=== PATIENT | male | born 1960 | race Caucasian/White ===

== ENCOUNTER 2018-02-02 08:40 | Observation (INO) | payer OTHER ==
[2018-02-02] MEDS ORDERED: Aspirin 81 MG Tab.Chew PO ONE (08:54)
[2018-02-02] MEDS ORDERED: Sodium Chloride 0.9% 2.5 ML Syringe FLUSH PRN (08:54)
[2018-02-02] MEDS ORDERED: Sodium Chloride 0.9% 10 ML Syringe FLUSH PRN (08:54)
[2018-02-02] MEDS: Metoprolol Tartrate 5 MG/5 ML SDV IVPUSH SCH ×2 (09:12→12:07)
--- NOTE | 2018-02-02 09:40 | CR ---
EXAMINATION: Portable chest radiograph. HISTORY: Shortness of breath. FINDINGS: The trachea is midline. The cardiomediastinal silhouette is within normal limits. No pulmonary infilt rates, effusions or pneumothorax. Left costophrenic angle not included. Osseous structures appear unremarkable. IMPRESSION: No acute cardiopulmonary process.
[2018-02-02 09:42] LABS: CHLORIDE,CL 103 mmol/L (98-107); SODIUM,NA 138 mmol/L (136-148)
[2018-02-02] MEDS ORDERED: Nitroglycerin 0.4 MG Tab.SL ONE (09:59)
[2018-02-02] MEDS ORDERED: Nitroglycerin 0.4 MG Tab.SL SL ONE (10:00)
[2018-02-02] MEDS ORDERED: Temazepam 15 MG Cap PO PRN (10:51)
[2018-02-02] MEDS ORDERED: Docusate Sodium 100 MG Cap PO PRN (10:51)
[2018-02-02] MEDS ORDERED: Ondansetron 4 MG/2 ML SDV IVPUSH PRN (10:51)
[2018-02-02] MEDS ORDERED: Morphine 10 MG/ML Syringe IVPUSH PRN (10:51)
[2018-02-02] MEDS ORDERED: Ondansetron 4 MG Tab.DIS PO PRN (10:51)
[2018-02-02] MEDS ORDERED: Ibuprofen 600 MG Tab PO PRN (10:51)
[2018-02-02] MEDS ORDERED: Acetaminophen 325 MG Tab PO PRN (10:51)
[2018-02-02] MEDS ORDERED: Nitroglycerin 0.4 MG Tab.SL SL PRN (10:55)
--- NOTE | 2018-02-02 11:06 | PCM.HP ---
H&P History of Present Illness - General Date of Service: 02/02/18 Admit Problem/Dx: Admission Diagnosis/Problem Admission Diagnosis/Problem Chest pain - History of Present Illness Initial Comments - Free Text/Narative: Adolfo Rodriguez is a 57 y/o male with history of hypertension who presented to the ER complaining of chest pain. He states the pain is located substernally, come and goes for the past 1 month. No radiation to neck or left arm. No diaphoresis. Denies any acid reflux. States that he takes prednisone for joint pain. Does not know the exact reason. He last took prednisone 40 mg yesterday. Denies any recent illnesses. No cough, nausea. No abdominal pain, dysuria, diarrhea. He does endorse a family history of heart disease and diabetes. He does not smoke tobacco but does chew 1 pack/week. In the ER, the patient was given one dose of nitroglycerin. Troponin was negative. No acute changes in EKG. Currently, denying any chest pain. Chest Pain Score (Numeric/FACES): 1 - Related Data Allergies/Adverse Reactions: Allergies Allergy/AdvReac Type Severity Reaction Status Date / Time Sulfa (Sulfonamide Allergy Hives Verified 02/02/18 08:48 Antibiotics) Home Medications: Home Meds Diclofenac Sodium [Voltaren] 50 mg PO DAILY 02/02/18 [History] Losartan [Cozaar] 50 mg PO DAILY 02/02/18 [History] Past Medical History Cardiovascular History: Reports: Hypertension Musculoskeletal History: Reports: Back Pain, Chronic Psychiatric History: Reports: PTSD - Infectious Disease History Infectious Disease History: Reports: Chicken Pox Social & Family History - Tobacco Use Smoking Status *Q: Never Smoker - Caffeine Use Caffeine Use: Reports: Tea - Recreational Drug Use Recreational Drug Use: No H&P Review of Systems - Review of Systems: Review Of Systems: ROS reveals no pertinent complaints other than HPI. Exam - Exam Exam: See Below - Vital Signs Vital Signs: Last Vital Signs Temp 36.3 C 02/02/18 08:44 Pulse 85 02/02/18 09:12 Resp 18 02/02/18 08:44 BP 126/78 02/02/18 10:01 Pulse Ox 93 L 02/02/18 08:44 Weight: 100.7 kg - Exam General: Alert, Oriented, Cooperative HEENT: Conjunctiva Clear, Mucosa Moist & [place], Posterior Pharynx Clear, Pupils Equal, Pupils Reactive Lungs: Clear to Auscultation, Normal Respiratory Effort. No: Crackles, Wheezing Cardiovascular: Regular Rate, Regular Rhythm, Other (Chest area was nontender to touch.) GI/Abdominal Exam: Normal Bowel Sounds, Soft, Non-Tender, No Organomegaly, No Distention Back Exam: Normal Inspection Extremities: Normal Inspection, Non-Tender, No Pedal Edema Skin: Warm, Dry Neurological: Cranial Nerves Intact Psychiatric: Alert, Normal Affect - Patient Data Lab Results Last 24 hrs: Laboratory Results - last 24 hr 02/02/18 02/02/18 Range/Units 09:03 09:03 WBC 16.41 H (4.0-11.0) K/uL RBC 5.39 (4.50-5.90) M/uL Hgb 16.8 (13.0-17.0) g/dL Hct 47.5 (38.0-50.0) % MCV 88.1 (80.0-98.0) fL MCH 31.2 (27.0-32.0) pg MCHC 35.4 (31.0-37.0) g/dL RDW Std Deviation 42.0 (28.0-62.0) fl RDW Coeff of Jeff 13 (11.0-15.0) % Plt Count 307 (150-400) K/uL MPV 10.60 (7.40-12.00) fL Neut % (Auto) 88.6 H (48.0-80.0) % Lymph % (Auto) 6.6 L (16.0-40.0) % [place] % (Auto) 4.7 (0.0-15.0) % Eos % (Auto) 0.0 (0.0-7.0) % Baso % (Auto) 0.1 (0.0-1.5) % Neut # (Auto) 14.6 H (1.4-5.7) K/uL Lymph # (Auto) 1.1 (0.6-2.4) K/uL [place] # (Auto) 0.8 (0.0-0.8) K/uL Eos # (Auto) 0.0 (0.0-0.7) K/uL Baso # (Auto) 0.0 (0.0-0.1) K/uL Nucleated RBC % 0.0 /100WBC Nucleated RBCs # 0 K/uL Sodium 138 (136-148) mmol/L Potassium 4.8 (3.5-5.1) mmol/L Chloride 103 (98-107) mmol/L Carbon Dioxide 22.9 (21.0-32.0) mmol/L BUN 17 (7.0-18.0) mg/dL Creatinine 1.3 (0.8-1.3) mg/dL Est Cr Clr Drug Dosing 63.45 mL/min Estimated GFR (MDRD) 57.1 ml/min Glucose 108 H (74-106) mg/dL Calcium 9.9 (8.5-10.1) mg/dL Total Bilirubin 0.5 (0.2-1.0) mg/dL AST 19 (15-37) IU/L ALT 37 (14-63) IU/L Alkaline Phosphatase 101 (46-116) U/L Troponin I < 0.050 (0.000-0.056) ng/mL Total Protein 7.7 (6.4-8.2) g/dL Albumin 4.1 (3.4-5.0) g/dL Globulin 3.6 H (2.0-3.5) g/dL Albumin/Globulin Ratio 1.1 L (1.3-2.8) Result Diagrams: 02/02/18 09:03 02/02/18 09:03 Problem List Initiated/Reviewed/Updated: Yes Orders Last 24hrs: Active Orders 24 hr Category Date Time Status Patient Status [ADT] Routine ADT 02/02/18 10:51 Ordered Patient Status [ADT] Stat ADT 02/02/18 10:33 Active Cardiac Monitoring [RC] CONTINUOUS Care 02/02/18 10:52 Ordered EKG Documentation Completion [RC] STAT Care 02/02/18 08:54 Active Oxygen Therapy [RC] PRN Care 02/02/18 10:51 Ordered Up ad Jose Alfredo [RC] ASDIRECTED Care 02/02/18 10:51 Ordered VTE/DVT Education [RC] PER UNIT ROUTINE Care 02/02/18 10:51 Ordered Vital Signs [RC] Q4H Care 02/02/18 10:51 Ordered Regular Diet [DIET] Diet 02/02/18 Lunch Ordered TROPONIN I [CHEM] Q8H Lab 02/02/18 18:00 Ordered TROPONIN I [CHEM] Q8H Lab 02/03/18 02:00 Ordered UA W/MICROSCOPIC [URIN] Routine Lab 02/02/18 10:58 Ordered Acetaminophen [Tylenol] Med 02/02/18 10:51 Ordered 650 mg PO Q4H PRN Aspirin Med 02/03/18 09:00 Ordered 81 mg PO DAILY Docusate Sodium [Colace] Med 02/02/18 10:51 Ordered 100 mg PO BID PRN Enoxaparin [Lovenox] Med 02/02/18 11:00 Ordered 40 mg SUBCUT Q24H Ibuprofen [Motrin] Med 02/02/18 10:51 Ordered 600 mg PO Q6H PRN Losartan [Cozaar] Med 02/03/18 09:00 Ordered 50 mg PO DAILY Morphine Med 02/02/18 10:51 Ordered 2 mg IVPUSH Q2H PRN Nitroglycerin [Nitrostat] Med 02/02/18 10:55 Ordered 0.4 mg SL Q5M PRN Ondansetron [Zofran ODT] Med 02/02/18 10:51 Ordered 4 mg PO Q4H PRN Ondansetron [Zofran] Med 02/02/18 10:51 Ordered 4 mg IVPUSH Q4H PRN Sodium Chloride 0.9% [Saline Flush] Med 02/02/18 08:54 Active 10 ml FLUSH ASDIRECTED PRN Sodium Chloride 0.9% [Saline Flush] Med 02/02/18 08:54 Active 2.5 ml FLUSH ASDIRECTED PRN Temazepam [Restoril] Med 02/02/18 10:51 Ordered 15 mg PO BEDTIME PRN Saline Lock Insert [OM.PC] Stat Oth 02/02/18 08:54 Ordered Resuscitation Status Routine Resus Stat 02/02/18 10:51 Ordered Medication Orders Acetaminophen (Tylenol) 650 mg PO Q4H PRN PRN Reason: Pain (Mild 1-3)/fever Aspirin (Aspirin) 81 mg PO DAILY GATO Docusate Sodium (Colace) 100 mg PO BID PRN PRN Reason: Constipation Enoxaparin Sodium (Lovenox) 40 mg SUBCUT Q24H GATO Ibuprofen (Motrin) 600 mg PO Q6H PRN PRN Reason: Pain (mild 1-3) Losartan Potassium (Cozaar) 50 mg PO DAILY [facility] Morphine Sulfate (Morphine) 2 mg IVPUSH Q2H PRN PRN Reason: Pain (severe 7-10) Stop: 02/03/18 10:53 Nitroglycerin (Nitrostat) 0.4 mg SL Q5M PRN PRN Reason: Chest Pain Ondansetron HCl (Zofran Odt) 4 mg PO Q4H PRN PRN Reason: nausea, able to take PO Ondansetron HCl (Zofran) 4 mg IVPUSH Q4H PRN PRN Reason: Nausea Sodium Chloride (Saline Flush) 10 ml FLUSH ASDIRECTED PRN PRN Reason: Keep Vein Open Sodium Chloride (Saline Flush) 2.5 ml FLUSH ASDIRECTED PRN PRN Reason: Keep Vein Open Temazepam (Restoril) 15 mg PO BEDTIME PRN PRN Reason: Sleep Assessment/Plan Comment:: Assessment: 1. Atypical chest pain 2. PMH hypertension 3. Leukocytosis Plan: 1. Admit as observation to medical unit. 2. Vitals and I/Os per floor routine. 3. Telemetry 4. Diet: regular diet 5. Activity: ad jose alfredo 6. DVT prophylaxis: Lovenox 7. Code Status: FULL CODE 1. Atypical chest pain- I suspect that his symptoms are more likely related to acid reflux. However, I ordered serial troponins and telemetry. Aspirin 81mg PO daily, nitroglycerin PRN, morphine for severe pain. I've ordered a GI cocktail. 2. Leukocytosis- I suspect that his leukocytosis is due to his prednisone that he took recently. Chest xray does not show signs of pneumonia. I've ordered a U/ A to assess for a UTI. Will continue to monitor. 3. PMH hypertension: continue home medication of Losartan. Dispol- likely tomorrow
[2018-02-02] MEDS ORDERED: Morphine 2 MG/ML Syringe IVPUSH PRN (12:40)
[2018-02-02] MEDS: Enoxaparin 40 MG/0.4 ML Syringe SUBCUT SCH (13:04)
[2018-02-02] MEDS ORDERED: Alum Hydrox/Mag Hydrox/Simeth 15 ML, Lidocaine 2% 5 ML PO ONE ×2 (19:42)
--- NOTE | 2018-02-03 08:26 | PCM.DCSUM1 ---
Discharge Summary - Hospital Course Free Text/Narrative:: Admission date: 02/02/18 Discharge date: 02/03/18 Admission diagnosis: 1. Atypical chest pain 2. Leukocytosis 3. PMH hypertension Discharge diagnosis: 1. ACS ruled out, serial troponins negative 2. Leukocytosis, resolved, secondary to prednisone use 3. PMH hypertension Hospital course: Adolfo Rodriguez is a 57 y/o male with history of hypertension who presented to the ER complaining of chest pain. Patient stated that his substernal pain has been going on and off for the past month. He was admitted for atypical chest pain. Serial troponins remained negative. No acute changes in EKG. Patient did well during this hospitalization. His chest pain had resolved. He was prescribed omeprazole 20 mg PO daily and provided a script for an outpatient cardiac stress test. Follow-up: 1. Follow-up with your primary care provider within 1-2 weeks. - Discharge Data Discharge Date: 02/03/18 Discharge Disposition: Home, Self-Care 01 Condition: Good - Patient Instructions Diet: Regular Diet as Tolerated Activity: As Tolerated Notify Provider of: Fever, Increased Pain, Swelling and Redness, Nausea and/or Vomiting Other/Special Instructions: Follow-up with your primary care provider within 1- 2 weeks for outpatient stress test. - Discharge Plan *PRESCRIPTION DRUG MONITORING PROGRAM REVIEWED*: Not Applicable *COPY OF PRESCRIPTION DRUG MONITORING REPORT IN PATIENT [place]: Not Applicable Prescriptions/Med Rec: Omeprazole 20 mg PO DAILY 30 Days #30 cap.sr Home Medications: Home Meds Albuterol Sulfate [Proair Hfa] 2 inh IH Q6H PRN 02/02/18 [History] Budesonide/Formoterol [Symbicort 160-4.5 MCG] 2 inh IH BID 02/02/18 [History] Cyclobenzaprine HCl 10 mg PO BEDTIME PRN 02/02/18 [History] Diclofenac Sodium [Voltaren] 75 mg PO BID PRN 02/02/18 [History] Losartan [Cozaar] 50 mg PO DAILY 02/02/18 [History] Meclizine [Antivert] 12.5 mg PO DAILY PRN 02/02/18 [History] predniSONE 40 mg PO DAILY PRN 02/02/18 [History] Omeprazole 20 mg PO DAILY 30 Days #30 cap.sr 02/03/18 [Rx] Patient Handouts: Exercise Stress Echocardiogram, Care After, [id number], Exercise Stress Test, [id number], Nonspecific Chest Pain, [id number], Omeprazole tablets (OTC) Referrals: Joao Domínguez MD [Ordering Only Provider] - 02/10/18 10:30 am - Discharge Summary/Plan Comment DC Time >30 min.: No - Patient Data Vitals - Most Recent: Last Vital Signs Temp 36.9 C 02/03/18 04:00 Pulse 78 02/03/18 04:00 Resp 17 02/03/18 04:00 BP 110/59 L 02/03/18 04:00 Pulse Ox 93 L 02/03/18 04:00 Weight - Most Recent: 100.726 kg I&O - Last 24 hours: Intake & Output 02/02/18 02/03/18 02/03/18 22:59 06:59 14:59 Intake Total 236 1340 Output Total 475 785 Balance -239 555 Lab Results - Last 24 hrs: Laboratory Results - last 24 hr 02/02/18 02/02/18 02/02/18 Range/Units 09:03 09:03 16:00 WBC 16.41 H (4.0-11.0) K/uL RBC 5.39 (4.50-5.90) M/uL Hgb 16.8 (13.0-17.0) g/dL Hct 47.5 (38.0-50.0) % MCV 88.1 (80.0-98.0) fL MCH 31.2 (27.0-32.0) pg MCHC 35.4 (31.0-37.0) g/dL RDW Std Deviation 42.0 (28.0-62.0) fl RDW Coeff of Jeff 13 (11.0-15.0) % Plt Count 307 (150-400) K/uL MPV 10.60 (7.40-12.00) fL Neut % (Auto) 88.6 H (48.0-80.0) % Lymph % (Auto) 6.6 L (16.0-40.0) % [place] % (Auto) 4.7 (0.0-15.0) % Eos % (Auto) 0.0 (0.0-7.0) % Baso % (Auto) 0.1 (0.0-1.5) % Neut # (Auto) 14.6 H (1.4-5.7) K/uL Lymph # (Auto) 1.1 (0.6-2.4) K/uL [place] # (Auto) 0.8 (0.0-0.8) K/uL Eos # (Auto) 0.0 (0.0-0.7) K/uL Baso # (Auto) 0.0 (0.0-0.1) K/uL Nucleated RBC % 0.0 /100WBC Nucleated RBCs # 0 K/uL Sodium 138 (136-148) mmol/L Potassium 4.8 (3.5-5.1) mmol/L Chloride 103 (98-107) mmol/L Carbon Dioxide 22.9 (21.0-32.0) mmol/L BUN 17 (7.0-18.0) mg/dL Creatinine 1.3 (0.8-1.3) mg/dL Est Cr Clr Drug Dosing 63.45 mL/min Estimated GFR (MDRD) 57.1 ml/min Glucose 108 H (74-106) mg/dL Calcium 9.9 (8.5-10.1) mg/dL Total Bilirubin 0.5 (0.2-1.0) mg/dL AST 19 (15-37) IU/L ALT 37 (14-63) IU/L Alkaline Phosphatase 101 (46-116) U/L Troponin I < 0.050 (0.000-0.056) ng/mL Total Protein 7.7 (6.4-8.2) g/dL Albumin 4.1 (3.4-5.0) g/dL Globulin 3.6 H (2.0-3.5) g/dL Albumin/Globulin Ratio 1.1 L (1.3-2.8) Urine Color YELLOW Urine Appearance CLEAR Urine pH 5.5 (5.0-8.0) Ur Specific [place] 1.015 (1.001-1.035) Urine Protein NEGATIVE (NEGATIVE) mg/dL Urine Glucose (UA) NEGATIVE (NEGATIVE) mg/dL Urine Ketones NEGATIVE (NEGATIVE) mg/dL Urine Occult Blood NEGATIVE (NEGATIVE) Urine Nitrite NEGATIVE (NEGATIVE) Urine Bilirubin NEGATIVE (NEGATIVE) Urine Urobilinogen 0.2 (<2.0) EU/dL Ur Leukocyte Esterase NEGATIVE (NEGATIVE) Urine RBC 0-1 (0-2/HPF) Urine WBC 0-1 (0-5/HPF) Ur Epithelial Cells RARE (NONE-FEW) Urine Bacteria RARE (NEGATIVE) 02/02/18 02/03/18 02/03/18 Range/Units 18:03 01:55 01:55 WBC 11.15 H (4.0-11.0) K/uL RBC 4.95 (4.50-5.90) M/uL Hgb 15.0 (13.0-17.0) g/dL Hct 44.5 (38.0-50.0) % MCV 89.9 (80.0-98.0) fL MCH 30.3 (27.0-32.0) pg MCHC 33.7 (31.0-37.0) g/dL RDW Std Deviation 43.7 (28.0-62.0) fl RDW Coeff of Jeff 13 (11.0-15.0) % Plt Count 280 (150-400) K/uL MPV 11.30 (7.40-12.00) fL Neut % (Auto) 64.8 (48.0-80.0) % Lymph % (Auto) 23.9 (16.0-40.0) % [place] % (Auto) 9.3 (0.0-15.0) % Eos % (Auto) 1.6 (0.0-7.0) % Baso % (Auto) 0.4 (0.0-1.5) % Neut # (Auto) 7.2 H (1.4-5.7) K/uL Lymph # (Auto) 2.7 H (0.6-2.4) K/uL [place] # (Auto) 1.0 H (0.0-0.8) K/uL Eos # (Auto) 0.2 (0.0-0.7) K/uL Baso # (Auto) 0.0 (0.0-0.1) K/uL Nucleated RBC % 0.0 /100WBC Nucleated RBCs # 0 K/uL Sodium (136-148) mmol/L Potassium (3.5-5.1) mmol/L Chloride (98-107) mmol/L Carbon Dioxide (21.0-32.0) mmol/L BUN (7.0-18.0) mg/dL Creatinine (0.8-1.3) mg/dL Est Cr Clr Drug Dosing mL/min Estimated GFR (MDRD) ml/min Glucose (74-106) mg/dL Calcium (8.5-10.1) mg/dL Total Bilirubin (0.2-1.0) mg/dL AST (15-37) IU/L ALT (14-63) IU/L Alkaline Phosphatase (46-116) U/L Troponin I < 0.050 < 0.050 (0.000-0.056) ng/mL Total Protein (6.4-8.2) g/dL Albumin (3.4-5.0) g/dL Globulin (2.0-3.5) g/dL Albumin/Globulin Ratio (1.3-2.8) Urine Color Urine Appearance Urine pH (5.0-8.0) Ur Specific [place] (1.001-1.035) Urine Protein (NEGATIVE) mg/dL Urine Glucose (UA) (NEGATIVE) mg/dL Urine Ketones (NEGATIVE) mg/dL Urine Occult Blood (NEGATIVE) Urine Nitrite (NEGATIVE) Urine Bilirubin (NEGATIVE) Urine Urobilinogen (<2.0) EU/dL Ur Leukocyte Esterase (NEGATIVE) Urine RBC (0-2/HPF) Urine WBC (0-5/HPF) Ur Epithelial Cells (NONE-FEW) Urine Bacteria (NEGATIVE) 02/03/18 Range/Units 01:55 WBC (4.0-11.0) K/uL RBC (4.50-5.90) M/uL Hgb (13.0-17.0) g/dL Hct (38.0-50.0) % MCV (80.0-98.0) fL MCH (27.0-32.0) pg MCHC (31.0-37.0) g/dL RDW Std Deviation (28.0-62.0) fl RDW Coeff of Jeff (11.0-15.0) % Plt Count (150-400) K/uL MPV (7.40-12.00) fL Neut % (Auto) (48.0-80.0) % Lymph % (Auto) (16.0-40.0) % [place] % (Auto) (0.0-15.0) % Eos % (Auto) (0.0-7.0) % Baso % (Auto) (0.0-1.5) % Neut # (Auto) (1.4-5.7) K/uL Lymph # (Auto) (0.6-2.4) K/uL [place] # (Auto) (0.0-0.8) K/uL Eos # (Auto) (0.0-0.7) K/uL Baso # (Auto) (0.0-0.1) K/uL Nucleated RBC % /100WBC Nucleated RBCs # K/uL Sodium 138 (136-148) mmol/L Potassium 4.2 (3.5-5.1) mmol/L Chloride 103 (98-107) mmol/L Carbon Dioxide 23.3 (21.0-32.0) mmol/L BUN 22 H (7.0-18.0) mg/dL Creatinine 1.3 (0.8-1.3) mg/dL Est Cr Clr Drug Dosing 63.45 mL/min Estimated GFR (MDRD) 57.1 ml/min Glucose 110 H (74-106) mg/dL Calcium 9.1 (8.5-10.1) mg/dL Total Bilirubin (0.2-1.0) mg/dL AST (15-37) IU/L ALT (14-63) IU/L Alkaline Phosphatase (46-116) U/L Troponin I (0.000-0.056) ng/mL Total Protein (6.4-8.2) g/dL Albumin (3.4-5.0) g/dL Globulin (2.0-3.5) g/dL Albumin/Globulin Ratio (1.3-2.8) Urine Color Urine Appearance Urine pH (5.0-8.0) Ur Specific [place] (1.001-1.035) Urine Protein (NEGATIVE) mg/dL Urine Glucose (UA) (NEGATIVE) mg/dL Urine Ketones (NEGATIVE) mg/dL Urine Occult Blood (NEGATIVE) Urine Nitrite (NEGATIVE) Urine Bilirubin (NEGATIVE) Urine Urobilinogen (<2.0) EU/dL Ur Leukocyte Esterase (NEGATIVE) Urine RBC (0-2/HPF) Urine WBC (0-5/HPF) Ur Epithelial Cells (NONE-FEW) Urine Bacteria (NEGATIVE) Med Orders - Current: Current Medications Acetaminophen (Tylenol) 650 mg PO Q4H PRN PRN Reason: Pain (Mild 1-3)/fever Aspirin (Aspirin) 81 mg PO DAILY PENDING SALE TO [facility] Docusate Sodium (Colace) 100 mg PO BID PRN PRN Reason: Constipation Enoxaparin Sodium (Lovenox) 40 mg SUBCUT Q24H PENDING SALE TO [facility] Last Admin: 02/02/18 13:04 Dose: 40 mg Ibuprofen (Motrin) 600 mg PO Q6H PRN PRN Reason: Pain (mild 1-3) Losartan Potassium (Cozaar) 50 mg PO DAILY PENDING SALE TO [facility] Morphine Sulfate (Morphine) 2 mg IVPUSH Q2H PRN PRN Reason: Pain (severe 7-10) Stop: 02/03/18 10:53 Nitroglycerin (Nitrostat) 0.4 mg SL Q5M PRN PRN Reason: Chest Pain Ondansetron HCl (Zofran Odt) 4 mg PO Q4H PRN PRN Reason: nausea, able to take PO Ondansetron HCl (Zofran) 4 mg IVPUSH Q4H PRN PRN Reason: Nausea Sodium Chloride (Saline Flush) 10 ml FLUSH ASDIRECTED PRN PRN Reason: Keep Vein Open Sodium Chloride (Saline Flush) 2.5 ml FLUSH ASDIRECTED PRN PRN Reason: Keep Vein Open Temazepam (Restoril) 15 mg PO BEDTIME PRN PRN Reason: Sleep Discontinued Medications Aspirin (Aspirin) 324 mg PO ONETIME ONE Stop: 02/02/18 08:55 Last Admin: 02/02/18 09:10 Dose: 324 mg Al Hydroxide/Mg Hydroxide 15 (ml/ Lidocaine HCl 5 ml) 0 ml PO ONETIME ONE Stop: 02/02/18 19:43 Last Admin: 02/02/18 20:26 Dose: 15 each Metoprolol Tartrate (Lopressor) 5 mg IVPUSH Q5M PENDING SALE TO [facility] Stop: 02/02/18 09:11 Last Admin: 02/02/18 12:07 Dose: Not Given Morphine Sulfate (Morphine) 2 mg IVPUSH Q2H PRN PRN Reason: Pain (severe 7-10) Stop: 02/03/18 10:53 Nitroglycerin (Nitrostat) 0.4 mg SL ONETIME ONE Stop: 02/02/18 10:01 Last Admin: 02/02/18 10:01 Dose: 0.4 mg Nitroglycerin (Nitrostat) Confirm Administered Dose 0.4 mg .ROUTE .[facility] ONE Stop: 02/02/18 10:00 Last Admin: 02/02/18 10:01 Dose: Not Given
[2018-02-03] MEDS ORDERED: Aspirin 81 MG Tab.Chew PO SCH (09:00)
[2018-02-03] MEDS ORDERED: Losartan 50 MG Tab PO SCH (09:00)
[2018-02-03] MEDS: Enoxaparin 40 MG/0.4 ML Syringe SUBCUT SCH (12:06)
== END 2018-02-03 12:00 | disposition home or self-care (01) ==
LOC: MW.ED 08:40 → MW.MS 10:51
PROVIDERS: ADMIT Internal Medicine; ATTEND Internal Medicine
DX: R07.89 Other chest pain (principal); D72.829 Elevated white blood cell count, unspecified; I10 Essential (primary) hypertension; F43.10 Post-traumatic stress disorder, unspecified; Z88.2 Allergy status to sulfonamides; Z79.899 Other long term (current) drug therapy
CPT/HCPCS: 36415; 71045; 80048; 80053; 81001; 84484; 85025; 93005; 99285; A9270; J1650; 96372; G0378

== ENCOUNTER 2018-08-30 06:20 | Day surgery (SDC) | payer OTHER ==
[~2018-08-30 06:20] MED LIST: Lactated Ringers 1,000 ML IV SCH
[2018-08-30] MEDS ORDERED: Bupivacaine 0.25% 10 ML SDV ONE (07:19)
[2018-08-30] MEDS ORDERED: Lidocaine 1% 20 ML MDV ONE (07:20)
[2018-08-30] MEDS ORDERED: ceFAZolin 2 GM in Premix Bag 1 BAG IV SCH (08:00)
[2018-08-30] MEDS ORDERED: Acetaminophen/HYDROcodone 325-5 MG Tab PO PRN (08:00)
--- NOTE | 2018-08-30 08:37 | PCM.OPNOTE ---
- General Post-Op/Procedure Note Date of Surgery/Procedure: 08/30/18 Operative Procedure(s): Release right LF/RF A1 mima Post-Op Diagnosis: Right LF, RF trigger finger Anesthesia Technique: Local Primary Surgeon: Ana Domínguez Remarketing Manager: Caitlyn Vincent in mLs: 5 Condition: Good Free Text/Narrative:: tt=7 min #[id number]
--- NOTE | 2018-08-30 15:24 | OR ---
SURGEON: nAa Domínguez MD DATE OF PROCEDURE: 08/30/2018 PREOPERATIVE DIAGNOSIS: Right long finger and ring finger, trigger fingers. POSTOPERATIVE DIAGNOSIS: Right long finger and ring finger, trigger fingers. PROCEDURE: Release of right long finger and ring finger A1 mima. FISHER DIP NET: Caitlyn Vincent RN. ANESTHESIA: Local. ESTIMATED BLOOD LOSS: 5 mL. TOURNIQUET TIME: 7 minutes. COMPLICATIONS: None. DVT PROPHYLAXIS: Not indicated. IMPLANTS USED: None. BRIEF HISTORY: Adolfo is a 58-year-old male, who has had complaint of triggering of the right long and ring finger. He has previously undergone injections, which have not given him significant relief. Due to his lack of response to conservative treatment, I did recommend surgical intervention. The risks and goals of procedure were discussed with the patient and were documented preoperatively. He agreed to proceed. DESCRIPTION OF PROCEDURE: The patient was properly identified and brought to the operating room. He was transferred from the OR cart and placed on the operating table in supine position. A well-padded tourniquet was applied to the right upper extremity. The right upper extremity was then prepped in standard fashion using ChloraPrep solution. It was then sterilely draped. A time-out was performed to ensure correct site and procedure. Preoperative antibiotics were given. The surgical site had been marked preoperatively. A mixture of 1% lidocaine and 0.5% Marcaine was then injected along the areas of anticipated incision. An Esmarch was used to exsanguinate the right upper extremity and the tourniquet was inflated to 200 mmHg. An incision was made over the ring finger palmar crease. Subcutaneous tissues were dissected down to the level of the tendon sheath. The retractors were used to protect the digital nerves. The A1 mima was then identified. This was incised with a knife. The tendons were then pulled into the wound and no further triggering was noted. The patient was awakened, was able to bend and straighten his finger without any triggering. He was able to flex and extend his finger without any triggering. I then turned my attention to the long finger. An incision was again made through the palmar crease. Subcutaneous tissues were dissected and care was taken to protect the digital nerves. The A1 mima was identified. This was again incised midline with a knife. The tendons were pulled into the wound and no further triggering was noted. He did flex and extend both fingers and no active triggering was noted. The wounds were then copiously irrigated with saline solution. The tourniquet was deflated. No significant bleeding was noted. Wounds were closed with 3-0 nylon. Xeroform gauze was placed over the wound and a bulky dressing was applied. He was transferred to the operating room cart and brought to recovery in stable condition. CRAIG CHA /[id number]
== END 2018-08-30 08:57 | disposition home or self-care (01) ==
LOC: MW.SDS 06:20
PROVIDERS: ATTEND Orthopaedic Surgery
DX: M65.341 Trigger finger, right ring finger (principal); M65.331 Trigger finger, right middle finger; F17.210 Nicotine dependence, cigarettes, uncomplicated; Z88.2 Allergy status to sulfonamides; Z79.1 Long term (current) use of non-steroidal anti-inflammatories (NSAID); Z79.899 Other long term (current) drug therapy
CPT/HCPCS: 26055; J2001; J3490; J7120

== ENCOUNTER 2019-03-16 16:25 | Emergency (ER) | payer OTHER ==
--- NOTE | 2019-03-16 16:33 | EDM.PDOC ---
ED HPI GENERAL MEDICAL PROBLEM - General Chief Complaint: Lower Extremity Injury/Pain Stated Complaint: LEFT LEG POSSIBLE BLOOD CLOT AFTER SURGERY Time Seen by Provider: 03/16/19 16:27 Source of Information: Reports: Patient History Limitations: Reports: No Limitations - History of Present Illness INITIAL COMMENTS - FREE TEXT/NARRATIVE: HISTORY AND PHYSICAL: History of present illness: Patient is a 58-year-old male who presents to the emergency room with concerns of a possible blood clot post surgery. Patient reports he had a total knee done on 03/12/[address] at [facility] in [place]. Today he noticed some bruising to the left lateral knee along with some tenderness to the upper posterior calf. He did call the surgeon who recommended he come to the emergency room for evaluation to rule out a DVT. He states he has been ambulating with a walker at home for short brief distances without any problems or complications. The incision site itself appears within normal limits and has not had any excessive drainage or bleeding. He denies any numbness or tingling to his distal extremities. He is able to weight-bear without any difficulty or deficits. Patient denies any fever, chills, headache, change in vision, syncope or near syncope. Denies any chest pain, back pain, shortness of breath or cough. Denies any abdominal pain, nausea, vomiting, diarrhea, constipation or dysuria. Has not noted any blood in urine or stool. Patient has been eating and drinking appropriately. Review of systems: As per history of present illness and below otherwise all systems reviewed and negative. Past medical history: As per history of present illness and as reviewed below otherwise noncontributory. Surgical history: As per history of present illness and as reviewed below otherwise noncontributory. Social history: See social history for further information Family history: As per history of present illness and as reviewed below otherwise noncontributory. Physical exam: General: Well-developed and well-nourished 58-year-old male. Alert and oriented. Nontoxic appearing and in no acute distress. HEENT: Atraumatic, normocephalic, pupils equal and reactive bilaterally, negative for conjunctival pallor or scleral icterus, mucous membranes moist, nontender, trachea midline. No drooling or trismus noted. No meningeal signs. No hot potato voice noted. Lungs: Clear to auscultation, breath sounds equal bilaterally, chest nontender. Heart: S1S2, regular rate and rhythm without overt murmur Abdomen: Soft, nondistended, nontender. Negative for masses. Negative for costovertebral tenderness. Pelvis: Stable nontender.. Skin: Linear/midline post operative incision to left knee. No evidence of postoperative infection noted. Localized area of bruising noted to the left lateral proximal tib/fib. Otherwise remaining skin is intact, warm, dry. No lesions or rashes noted. Extremities: Recent total knee surgery, moves all extremities per self without difficulty or deficits, negative for cords or calf pain. Neurovascular unremarkable. Neuro: Awake, alert, oriented. Cranial nerves II through XII unremarkable. Cerebellum unremarkable. Motor and sensory unremarkable throughout. Exam nonfocal. Notes: Lab work and imaging are unremarkable. VSS. He will remain in close contact with his surgeon for follow up care. Supportive care measures were reviewed and discussed. Voices understanding and is agreeable to plan of care. Denies any further questions or concerns at this time. Diagnostics: CBC, CMP, Venous U/S Therapeutics: None Prescription: None Impression: Encounter for medical screening exam Postoperative ecchymosis Plan: 1. Rest, ice, elevate the affected extremity. Please wear the splint as directed. Continue to monitor your incision site. 2. Tylenol and/or Ibuprofen as needed for pain management. Or take your prescription pain medications as directed. 3. Follow up with the Orthopedic provider, Dr Chappell- as we discussed. Return to the ED as needed and as discussed. Definitive disposition and diagnosis as appropriate pending reevaluation and review of above. left lower leg Pain Score (Numeric/FACES): 1 - Related Data Allergies Allergy/AdvReac Type Severity Reaction Status Date / Time Sulfa (Sulfonamide Allergy Hives Verified 08/28/18 07:35 Antibiotics) Home Meds: Home Meds Losartan [Cozaar] 50 mg PO DAILY 02/02/18 [History] Omeprazole 20 mg PO DAILY 30 Days #30 cap.sr 02/03/18 [Rx] Acetaminophen [Tylenol Extra Strength] 3 tab PO ASDIRECTED PRN 08/28/18 [History ] atorvaSTATin Calcium [Atorvastatin Calcium] 40 mg PO DAILY 08/28/18 [History] Docusate Sodium [Stool Softener] 03/16/19 [History] Meloxicam 03/16/19 [History] oxyCODONE 03/16/19 [History] Past Medical History - Past Health History Medical/Surgical History: Denies Medical/Surgical History HEENT History: Reports: None Cardiovascular History: Reports: Hypertension Respiratory History: Reports: None Gastrointestinal History: Reports: Hiatal Hernia Genitourinary History: Reports: None Musculoskeletal History: Reports: Arthritis, Back Pain, Chronic, Fracture, Gout Other Musculoskeletal History: 1980-fx of right ankle, degenerative disc disease Neurological History: Reports: None Psychiatric History: Reports: PTSD Endocrine/Metabolic History: Reports: Obesity/BMI 30+ Hematologic History: Reports: None Immunologic History: Reports: None Oncologic (Cancer) History: Reports: None Dermatologic History: Reports: None - Infectious Disease History Infectious Disease History: Reports: Chicken Pox - Past Surgical History Head Surgeries/Procedures: Reports: None HEENT Surgical History: Reports: None Cardiovascular Surgical History: Reports: None Respiratory Surgical History: Reports: None GI Surgical History: Reports: Colonoscopy, EGD, Hernia, Abdominal Male Surgical History: Reports: Vasectomy Endocrine Surgical History: Reports: None Neurological Surgical History: Reports: None Oncologic Surgical History: Reports: None Social & Family History - Family History Cardiac: Reports: Other (See Below) Other Cardiac Family History: Dad and uncle both had triple bypass. Endocrine/Metabolic: Reports: Diabetes, type II Other Endocrine/Metabolic Family History: Mother had DM - Caffeine Use Caffeine Use: Reports: Energy Drinks, Tea Review of Systems - Review of Systems Review Of Systems: Comprehensive ROS is negative, except as noted in HPI. ED EXAM, GENERAL - Physical Exam Exam: See Below (See dictation) Course - Vital Signs Last Recorded V/S: Last Vital Signs Temp 96.9 F 03/16/19 16:34 Pulse 96 03/16/19 16:34 Resp 15 03/16/19 16:34 BP 159/92 H 03/16/19 16:34 Pulse Ox 93 L 03/16/19 16:34 - Orders/Labs/Meds Labs: Laboratory Tests 03/16/19 03/16/19 Range/Units 17:00 17:00 WBC 11.38 H (4.0-11.0) K/uL RBC 3.94 L (4.50-5.90) M/uL Hgb 12.0 L (13.0-17.0) g/dL Hct 35.4 L (38.0-50.0) % MCV 89.8 (80.0-98.0) fL MCH 30.5 (27.0-32.0) pg MCHC 33.9 (31.0-37.0) g/dL RDW Std Deviation 45.0 (28.0-62.0) fl RDW Coeff of Jeff 14 (11.0-15.0) % Plt Count 369 (150-400) K/uL MPV 10.60 (7.40-12.00) fL Neut % (Auto) 76.2 (48.0-80.0) % Lymph % (Auto) 9.8 L (16.0-40.0) % Sebastian % (Auto) 10.2 (0.0-15.0) % Eos % (Auto) 3.5 (0.0-7.0) % Baso % (Auto) 0.3 (0.0-1.5) % Neut # (Auto) 8.7 H (1.4-5.7) K/uL Lymph # (Auto) 1.1 (0.6-2.4) K/uL Sebastian # (Auto) 1.2 H (0.0-0.8) K/uL Eos # (Auto) 0.4 (0.0-0.7) K/uL Baso # (Auto) 0.0 (0.0-0.1) K/uL Nucleated RBC % 0.0 /100WBC Nucleated RBCs # 0 K/uL Sodium 139 (136-148) mmol/L Potassium 4.1 (3.5-5.1) mmol/L Chloride 105 (98-107) mmol/L Carbon Dioxide 25.5 (21.0-32.0) mmol/L BUN 20 H (7.0-18.0) mg/dL Creatinine 1.7 H (0.8-1.3) mg/dL Est Cr Clr Drug Dosing 47.94 mL/min Estimated GFR (MDRD) 41.8 ml/min Glucose 123 H (74-106) mg/dL Calcium 8.7 (8.5-10.1) mg/dL Total Bilirubin 0.7 (0.2-1.0) mg/dL AST 42 H (15-37) IU/L ALT 32 (14-63) IU/L Alkaline Phosphatase 159 H (46-116) U/L Total Protein 6.6 (6.4-8.2) g/dL Albumin 2.7 L (3.4-5.0) g/dL Globulin 3.9 (2.6-4.0) g/dL Albumin/Globulin Ratio 0.7 L (0.9-1.6) Departure - Departure Time of Disposition: 17:57 Disposition: Home, Self-Care 01 Clinical Impression: Postoperative ecchymosis, Encounter for medical screening examination - Discharge Information Referrals: PCP,Unknown [Primary Care Provider] - Forms: ED Department Discharge Additional Instructions: The following information is given to patients seen in the emergency department who are being discharged to home. This information is to outline your options for follow-up care. We provide all patients seen in our emergency department with a follow-up referral. The need for follow-up, as well as the timing and circumstances, are variable depending upon the specifics of your emergency department visit. If you don't have a primary care physician on staff, we will provide you with a referral. We always advise you to contact your personal physician following an emergency department visit to inform them of the circumstance of the visit and for follow-up with them and/or the need for any referrals to a consulting specialist. The emergency department will also refer you to a specialist when appropriate. This referral assures that you have the opportunity for follow-up care with a specialist. All of these measure are taken in an effort to provide you with optimal care, which includes your follow-up. Under all circumstances we always encourage you to contact your private physician who remains a resource for coordinating your care. When calling for follow-up care, please make the office aware that this follow-up is from your recent emergency room visit. If for any reason you are refused follow-up, please contact the [facility] Emergency Department at and asked to speak to the emergency department charge nurse. [facility] [address] [place] [address] [id number] [address] [address] 1. Rest, ice, elevate the affected extremity. Please wear the splint as directed. Continue to monitor your incision site. 2. Tylenol and/or Ibuprofen as needed for pain management. Or take your prescription pain medications as directed. 3. Follow up with the Orthopedic provider, Dr Chappell, as we discussed. Return to the ED as needed and as discussed.
[2019-03-16 17:42] LABS: CARBON DIOXIDE,CO2 25.5 mmol/L (21.0-32.0); POTASSIUM,K 4.1 mmol/L (3.5-5.1)
--- NOTE | 2019-03-16 17:52 | US ---
INDICATION: LEFT TKA 03-12-19, BRUISING LEFT CALF, TECHNIQUE: Ultrasound venous duplex left lower extremity. COMPARISON: None. FINDINGS: The left common femoral, superficial femoral, deep femoral, popliteal, posterior tibial, and greater saphenous veins are fully compressible normal waveforms. IMPRESSION: Normal ultrasound of the left lower extremity veins. Dictated by: Joao Qureshi MD @ 03/16/2019 17:51:02 (Electronically Signed)
== END 2019-03-16 18:35 | disposition home or self-care (01) ==
LOC: MW.ED 16:25
DX: M96.840 Postprocedural hematoma of a musculoskeletal structure following a musculoskeletal system procedure (principal); I10 Essential (primary) hypertension; Z88.2 Allergy status to sulfonamides; Z79.899 Other long term (current) drug therapy
CPT/HCPCS: 36415; 80053; 85025; 93971-26-LT; 93971-LT; 99283; 99284-25